=== PATIENT | male | born 2000 | race Hispanic/Latino ===

== ENCOUNTER 2024-06-30 10:36 | Emergency (ER) | payer OTHER ==
[2024-06-30] MEDS ORDERED: Boostrix 0.5 ML (Tdap) VIAL (>/=7 yrs of age) ONE (10:42)
[2024-06-30] MEDS ORDERED: Cephalexin 500 MG CAP ONE (11:12)
== END 2024-06-30 11:32 | disposition home or self-care (01) ==
LOC: NAV ERS 10:36
DX: S91.105A Unspecified open wound of left lesser toe(s) without damage to nail, initial encounter (principal); Z23 Encounter for immunization; W29.8XXA Contact with other powered hand tools and household machinery, initial encounter
CPT/HCPCS: 90471; 90715